=== PATIENT | male | born 1945 | race Caucasian/White ===

== ENCOUNTER 2019-04-14 15:29 | Inpatient (IN) | payer MEDICARE, OTHER ==
[2019-04-14 15:37] LABS: Glucose,Whole Blood 48 mg/dL (75-99)
[2019-04-14] MEDS ORDERED: DEXTROSE 50% SYRINGE 50 ML IVP STA ×2 (15:41→16:49)
--- NOTE | 2019-04-14 15:50 | ED ---
Recheck HPI - General Chief Complaint: Altered Mental Status Stated Complaint: Hypoglycemia Time Seen by Provider: 04/14/19 15:36 Source: patient Mode of arrival: EMS Limitations: no limitations - History of Present Illness Initial Comments: 74-year-old male with history of diabetes type II, hyperlipidemia hypertension, CKD and previous CABG aortic valve replacement history of hypoglycemia on glipizidepresenting today for chief complaint of altered mental status. who is at bedside providing part of history wiht patient himself who is alert and oriented x3 and does not appears acutely altered, states that patient is 6 AM was out of it she states around 1 AM prior to this time patient was feeling hot and sweaty. Patient has history of previous hypoglycemic episodes and has happened in past. She states that patient was out of it by 6AM and hard to arouse so she called EMS, and was found to have low blood glucose of 48. Given an AMP of glucose and food and patient normalized. She states they did not wish to come to ER given patient has no other complaints. Patient state the symptoms returned again this afternoon and patient was again found hypoglycemic and was brought to the ER. Again patient has no other complaints-he denies any weakness of the upper or lower extremities he denies any speech changes facial droop numbness tingling of the extremities. He admits to some generalized weakness during episodes of low blood glucose. Patient denies any headache nausea vomiting abdominal pain chest pain shortness of breath. states that she thinks his lower extremity peripheral edema which is chronic appear slightly increased from baseline. Patient otherwise has no complaints, and appears nontoxic on arrival. VS stable. POC glucose LOW. - Related Data Home Medications Medication Instructions Recorded Confirmed Acetaminophen [Tylenol 8 Hour] 650 mg PO Q8H PRN 04/14/19 04/14/19 Aspirin EC [Ecotrin Low Dose] 81 mg PO DAILY 04/14/19 04/14/19 Calcitriol 0.25 mcg PO MOWEFR 04/14/19 04/14/19 Carvedilol 25 mg PO BID 04/14/19 04/14/19 Cholecalciferol (Vitamin D3) 2,000 unit PO DAILY 04/14/19 04/14/19 [Vitamin D3] Furosemide [Lasix] 80 mg PO DAILY 04/14/19 04/14/19 Glimepiride [Amaryl] 1 mg PO DAILY 04/14/19 04/14/19 Isosorbide Mononitrate ER [Imdur] 30 mg PO DAILY 04/14/19 04/14/19 Rosuvastatin Calcium [Crestor] 10 mg PO HS 04/14/19 04/14/19 Sodium Bicarbonate Tab 650 mg PO DAILY 04/14/19 04/14/19 Sotalol [Betapace] 80 mg PO BID 04/14/19 04/14/19 Tamsulosin HCl [Flomax] 0.4 mg PO DAILY 04/14/19 04/14/19 Ubidecarenone [Co Q-10] 100 mg PO DAILY 04/14/19 04/14/19 Warfarin [Coumadin] 2.5 mg PO DAILY 04/14/19 04/14/19 amLODIPine [Norvasc] 5 mg PO DAILY 04/14/19 04/14/19 hydrALAZINE HCL 25 mg PO BID 04/14/19 04/14/19 Allergies Allergy/AdvReac Type Severity Reaction Status Date / Time fluvastatin AdvReac Unknown Unknown Verified 04/14/19 17:51 clopidogrel [From Plavix] AdvReac Unknown Verified 04/14/19 17:51 spironolactone AdvReac ELEVATED Verified 04/14/19 17:51 [From Aldactone] POTASSIUM LEVELS Review of Systems ROS Statement: Those systems with pertinent positive or pertinent negative responses have been documented in the HPI. ROS Other: All systems not noted in ROS Statement are negative. Past Medical History Past Medical History: Coronary Artery Disease (CAD), Diabetes Mellitus, Hyperlipidemia, Hypertension Additional Past Medical History / Comment(s): bypass in 2015, childhood polio Past Surgical History: Unable to Obtain, Cardiac Valve Replacement, Coronary Bypass/CABG Additional Past Surgical History / Comment(s): CKD- stage 3, Smoking Status: Former smoker Past Alcohol Use History: None Reported Past Drug Use History: None Reported General Exam - General Exam Comments Initial Comments: General: The patient is awake and alert, in no distress Eye: +3 mm pupils are equal, round and reactive to light, extra-ocular movements are intact. No nystagmus. There is normal conjunctiva bilaterally. No signs of icterus. Ears, nose, mouth and throat: There are moist mucous membranes and no oral lesions. Neck: The neck is supple, there is no tenderness or JVD. Cardiovascular: There is a regular rate and rhythm. Murmur on exam. No rub or gallop is appreciated. Respiratory: Lungs are clear to auscultation, respirations are non-labored, breath sounds are equal. No wheezes, stridor, rales, or rhonchi. Gastrointestinal: Soft, non-distended, non-tender abdomen without masses or organomegaly noted. There is no rebound or guarding present. Musculoskeletal: Normal ROM, no tenderness. Strength 5/5 of the UE and LE equal b/l. Sensation intact of the face, chest, abdomen, UE and LE equal b/l. Radial and DP pulses equal bilaterally 2+. No drift of UE or LE. Finger to nose smooth and coordinated. Neurological: A&O x 3. CN II-XII intact grossly, There are no obvious motor or sensory deficits. Coordination appears grossly intact. Speech is normal. Skin: Skin is warm and dry and no rashes or lesions are noted. +2 LE pitting edema. Scar of the right LE lateral aspect. Psychiatric: Cooperative, appropriate mood & affect, normal judgment. Limitations: no limitations Course Vital Signs 04/14/19 04/14/19 04/14/19 15:31 15:47 17:20 Pulse Rate 63 Respiratory 18 17 18 Rate Blood Pressure 110/76 O2 Sat by Pulse 96 Oximetry Medical Decision Making - Medical Decision Making 74-year-old male presenting for labile glucose. Patient having bouts of hypoglycemia that are recurrent. Patient has history of CHF and has noted increasing edema per . Patient has no complaints. No fevers. Troponin mildly elevated BNP at 19,000. EKG is paced. She denies any chest pain or shortness of breath. No neurological deficits. No acute CT findings. CXR small pleural effusions. Throughout ER visits difficulty regulating sugar, plans on D5-0.45% with q30min blood glucose checks. Patient family updated [facility] laboratory results. Agreeable to admission with cardiology consultation. Patient given IV lasix in ER. Dr. Wren is agreeable with care plan and admission. [place] RIVAS recommended endocrine consult in addition to cardiology and is accepting of admission and current care plan. - Lab Data Result diagrams: 04/14/19 16:00 04/14/19 16:00 Lab Results 04/14/19 04/14/19 04/14/19 Range/Units 15:35 16:00 16:00 WBC 11.2 H (3.8-10.6) k/uL RBC 3.73 L (4.30-5.90) m/uL Hgb 10.2 L (13.0-17.5) gm/dL Hct 33.4 L (39.0-53.0) % MCV 89.7 (80.0-100.0) fL MCH 27.5 (25.0-35.0) pg MCHC 30.6 L (31.0-37.0) g/dL RDW 14.5 (11.5-15.5) % Plt Count 157 (150-450) k/uL Neutrophils % 87 % Lymphocytes % 5 % Monocytes % 7 % Eosinophils % 0 % Basophils % 0 % Neutrophils # 9.7 H (1.3-7.7) k/uL Lymphocytes # 0.6 L (1.0-4.8) k/uL Monocytes # 0.7 (0-1.0) k/uL Eosinophils # 0.0 (0-0.7) k/uL Basophils # 0.0 (0-0.2) k/uL PT (9.0-12.0) sec INR (<1.2) APTT (22.0-30.0) sec Sodium 139 (137-145) mmol/L Potassium 3.4 L (3.5-5.1) mmol/L Chloride 99 (98-107) mmol/L Carbon Dioxide 28 (22-30) mmol/L Anion Gap 12 mmol/L BUN 64 H (9-20) mg/dL Creatinine 1.75 H (0.66-1.25) mg/dL Est GFR (CKD-EPI)AfAm 44 (>60 ml/min/1.73 sqM) Est GFR (CKD-EPI)NonAf 38 (>60 ml/min/1.73 sqM) Glucose 33 L* (74-99) mg/dL POC Glucose (mg/dL) 48 L (75-99) mg/dL POC Glu [employer] ID Eli Rossi Calcium 8.5 (8.4-10.2) mg/dL Total Bilirubin 1.1 (0.2-1.3) mg/dL AST 33 (17-59) U/L ALT 15 (4-49) U/L Alkaline Phosphatase 92 (38-126) U/L Troponin I (0.000-0.034) ng/mL NT-Pro-B Natriuret Pep pg/mL Total Protein 7.0 (6.3-8.2) g/dL Albumin 3.4 L (3.5-5.0) g/dL 04/14/19 04/14/19 04/14/19 Range/Units 16:00 16:00 16:00 WBC (3.8-10.6) k/uL RBC (4.30-5.90) m/uL Hgb (13.0-17.5) gm/dL Hct (39.0-53.0) % MCV (80.0-100.0) fL MCH (25.0-35.0) pg MCHC (31.0-37.0) g/dL RDW (11.5-15.5) % Plt Count (150-450) k/uL Neutrophils % % Lymphocytes % % Monocytes % % Eosinophils % % Basophils % % Neutrophils # (1.3-7.7) k/uL Lymphocytes # (1.0-4.8) k/uL Monocytes # (0-1.0) k/uL Eosinophils # (0-0.7) k/uL Basophils # (0-0.2) k/uL PT 56.3 H (9.0-12.0) sec INR 5.8 H* (<1.2) APTT 43.4 H (22.0-30.0) sec Sodium (137-145) mmol/L Potassium (3.5-5.1) mmol/L Chloride (98-107) mmol/L Carbon Dioxide (22-30) mmol/L Anion Gap mmol/L BUN (9-20) mg/dL Creatinine (0.66-1.25) mg/dL Est GFR (CKD-EPI)AfAm (>60 ml/min/1.73 sqM) Est GFR (CKD-EPI)NonAf (>60 ml/min/1.73 sqM) Glucose (74-99) mg/dL POC Glucose (mg/dL) (75-99) mg/dL POC Glu [employer] ID Calcium (8.4-10.2) mg/dL Total Bilirubin (0.2-1.3) mg/dL AST (17-59) U/L ALT (4-49) U/L Alkaline Phosphatase (38-126) U/L Troponin I 0.073 H* (0.000-0.034) ng/mL NT-Pro-B Natriuret Pep 27231 pg/mL Total Protein (6.3-8.2) g/dL Albumin (3.5-5.0) g/dL 04/14/19 04/14/19 04/14/19 Range/Units 16:02 16:23 16:46 WBC (3.8-10.6) k/uL RBC (4.30-5.90) m/uL Hgb (13.0-17.5) gm/dL Hct (39.0-53.0) % MCV (80.0-100.0) fL MCH (25.0-35.0) pg MCHC (31.0-37.0) g/dL RDW (11.5-15.5) % Plt Count (150-450) k/uL Neutrophils % % Lymphocytes % % Monocytes % % Eosinophils % % Basophils % % Neutrophils # (1.3-7.7) k/uL Lymphocytes # (1.0-4.8) k/uL Monocytes # (0-1.0) k/uL Eosinophils # (0-0.7) k/uL Basophils # (0-0.2) k/uL PT (9.0-12.0) sec INR (<1.2) APTT (22.0-30.0) sec Sodium (137-145) mmol/L Potassium (3.5-5.1) mmol/L Chloride (98-107) mmol/L Carbon Dioxide (22-30) mmol/L Anion Gap mmol/L BUN (9-20) mg/dL Creatinine (0.66-1.25) mg/dL Est GFR (CKD-EPI)AfAm (>60 ml/min/1.73 sqM) Est GFR (CKD-EPI)NonAf (>60 ml/min/1.73 sqM) Glucose (74-99) mg/dL POC Glucose (mg/dL) 134 H 101 H 66 L (75-99) mg/dL POC Glu [employer] Tegan Faria Brittany Gorecki, Joanna Calcium (8.4-10.2) mg/dL Total Bilirubin (0.2-1.3) mg/dL AST (17-59) U/L ALT (4-49) U/L Alkaline Phosphatase (38-126) U/L Troponin I (0.000-0.034) ng/mL NT-Pro-B Natriuret Pep pg/mL Total Protein (6.3-8.2) g/dL Albumin (3.5-5.0) g/dL 04/14/19 04/14/19 Range/Units 17:00 17:49 WBC (3.8-10.6) k/uL RBC (4.30-5.90) m/uL Hgb (13.0-17.5) gm/dL Hct (39.0-53.0) % MCV (80.0-100.0) fL MCH (25.0-35.0) pg MCHC (31.0-37.0) g/dL RDW (11.5-15.5) % Plt Count (150-450) k/uL Neutrophils % % Lymphocytes % % Monocytes % % Eosinophils % % Basophils % % Neutrophils # (1.3-7.7) k/uL Lymphocytes # (1.0-4.8) k/uL Monocytes # (0-1.0) k/uL Eosinophils # (0-0.7) k/uL Basophils # (0-0.2) k/uL PT (9.0-12.0) sec INR (<1.2) APTT (22.0-30.0) sec Sodium (137-145) mmol/L Potassium (3.5-5.1) mmol/L Chloride (98-107) mmol/L Carbon Dioxide (22-30) mmol/L Anion Gap mmol/L BUN (9-20) mg/dL Creatinine (0.66-1.25) mg/dL Est GFR (CKD-EPI)AfAm (>60 ml/min/1.73 sqM) Est GFR (CKD-EPI)NonAf (>60 ml/min/1.73 sqM) Glucose (74-99) mg/dL POC Glucose (mg/dL) 195 H 70 L (75-99) mg/dL POC Glu [employer] Tegan Faria, Mari Calcium (8.4-10.2) mg/dL Total Bilirubin (0.2-1.3) mg/dL AST (17-59) U/L ALT (4-49) U/L Alkaline Phosphatase (38-126) U/L Troponin I (0.000-0.034) ng/mL NT-Pro-B Natriuret Pep pg/mL Total Protein (6.3-8.2) g/dL Albumin (3.5-5.0) g/dL - EKG Data EKG Comments: ventricular rate 62 bpm, QRS duration 194msQT/QTc 642/651 ms. This is ventricular paced rhythm. Disposition Clinical Impression: Hypoglycemia, Elevated troponin, CHF exacerbation, Coagulopathy, Supratherapeutic INR Disposition: ADMITTED IP TO THIS [facility] Condition: Serious Is patient prescribed a controlled substance at d/c from ED?: No Referrals: Nohemy Donis DO [Primary Care Provider] - 1-2 days Time of Disposition: 18:18 Decision to Admit Reason: Admit from EC Decision Date: 04/14/19 Decision Time: 18:19
[2019-04-14 16:05] LABS: Glucose,Whole Blood 134 mg/dL (75-99)
[2019-04-14 16:15] LABS: Basophils % (A) 0 %; Eosinophils % (A) 0 %; HCT 33.4 % (39.0-53.0); HGB 10.2 gm/dL (13.0-17.5); Lymphocytes # (A) 0.6 k/uL (1.0-4.8); Lymphocytes % (A) 5 %; MCH 27.5 pg (25.0-35.0); MCHC 30.6 g/dL (31.0-37.0); MCV 89.7 fL (80.0-100.0); Mean Platelet Volume 8.8; Monocytes # (A) 0.7 k/uL (0-1.0); Monocytes % (A) 7 %; Neutrophils # (A) 9.7 k/uL (1.3-7.7); Neutrophils % (A) 87 %; Platelet Count 157 k/uL (150-450); RBC 3.73 m/uL (4.30-5.90); RDW 14.5 % (11.5-15.5); WBC 11.2 k/uL (3.8-10.6)
[2019-04-14 16:25] LABS: Glucose,Whole Blood 101 mg/dL (75-99)
--- NOTE | 2019-04-14 16:28 | XR ---
EXAMINATION TYPE: XR chest 2V DATE OF EXAM: 04/14/2019 COMPARISON: None INDICATION: Low blood sugar, altered mental status TECHNIQUE: Frontal and lateral views of the chest are obtained. FINDINGS: The heart size is normal. The pulmonary vasculature is normal. Small posterior pleural effusions are present.. Electronic device overlies the right chest. Sternoto my wires are in the midline. IMPRESSION: 1. Small bilateral pleural effusions
--- NOTE | 2019-04-14 16:28 | CT ---
EXAMINATION TYPE: CT brain wo con DATE OF EXAM: 04/14/2019 COMPARISON: None INDICATION: altered mental status DLP: 1063.4 mGycm, Automated exposure control for dose reduction was used. CONTRAST: None CT of the brain is performed utilizing 3 mm thick sections through the posterior fossa and 3 mm thick sections through the remaining calvarium. Study is performed within 24 hours of arrival to the hosp ital. No abnormal hyperdensity is present to suggest an acute intracranial hemorrhage. No mass lesion is evident. No acute infarcts are evident. There is low density in the periventricular regions. There is hypodens ity extending centrum semiovale. This appears confluent. Ventricles and sulci are prominent for the patient age. Paranasal sinuses and mastoid air cells within the [id number] are clear. IMPRESSIONS: 1. Patchy to confluent periventricular white matter hypodensity, likely on the basis of chronic whi te matter ischemic changes.
[2019-04-14 16:31] LABS: Albumin 3.4 g/dL (3.5-5.0); Calcium 8.5 mg/dL (8.4-10.2); Potassium 3.4 mmol/L (3.5-5.1); Total Bilirubin 1.1 mg/dL (0.2-1.3)
[2019-04-14 16:33] LABS: Partial Thromboplastin Time 43.4 sec (22.0-30.0); Prothrombin Time 56.3 sec (9.0-12.0)
[2019-04-14 16:45] LABS: INR 5.8 (<1.2)
[2019-04-14 16:48] LABS: Glucose,Whole Blood 66 mg/dL (75-99)
[2019-04-14 17:09] LABS: Glucose,Whole Blood 195 mg/dL (75-99)
[2019-04-14] MEDS ORDERED: ACETAMINOPHEN TAB 325 MG TAB PO STA (17:10)
[2019-04-14] MEDS ORDERED: FUROSEMIDE 10 MG/ML 4 ML VIAL IV STA (17:31)
[2019-04-14] MEDS ORDERED: NITROGLYCERIN SL TABS 0.4 MG TAB SUBLINGUAL PRN (17:52)
[2019-04-14 18:00] LABS: Glucose,Whole Blood 70 mg/dL (75-99)
[2019-04-14] MEDS ORDERED: DEXTROSE 5%-0.45% NACL 1,000 ML IV ONE (18:17)
[2019-04-14 19:00] LABS: Appearance,Urine Clear (Clear); Bilirubin,Urine Negative (Negative); Blood,Urine Negative (Negative); Color,Urine Yellow; Glucose,Urine (UA) Negative (Negative); Ketones,Urine Negative (Negative); Leukocyte Esterase,Urine Negative (Negative); Nitrite,Urine Negative (Negative); Protein,Urine Negative (Negative); Specific Gravity,Urine 1.016 (1.001-1.035)
[2019-04-14 19:04] LABS: Glucose,Whole Blood 52 mg/dL (75-99)
[2019-04-14 19:16] LABS: Amphetamine Screen,Urine Not Detected (NotDetected); Barbiturate Screen,Urine Not Detected (NotDetected); Benzodiazepines Screen,Urine Not Detected (NotDetected); Cocaine Screen,Urine Not Detected (NotDetected); Methadone Screen, Urine Not Detected (NotDetected); Opiate Screen,Urine Not Detected (NotDetected); Oxycodone Screen, Urine Not Detected (NotDetected); Phencyclidine Screen,Urine Not Detected (NotDetected); Tricyclic Antidepressant,Urine Not Detected (NotDetected); Urn Cannabinoid Scrn Not Detected (NotDetected)
[2019-04-14 19:42] LABS: Glucose,Whole Blood 57 mg/dL (75-99)
[2019-04-14 19:53] LABS: Glucose,Whole Blood 72 mg/dL (75-99)
[2019-04-14 20:22] LABS: Glucose,Whole Blood 54 mg/dL (75-99)
[2019-04-14 20:38] LABS: Glucose,Whole Blood 52 mg/dL (75-99)
[2019-04-14 20:57] LABS: Glucose,Whole Blood 56 mg/dL (75-99)
[2019-04-14] MEDS ORDERED: DEXTROSE 10 % IN WATER 250 ML IV ONE (21:01)
[2019-04-14] MEDS: ACETAMINOPHEN TAB 325 MG TAB PO PRN (21:11)
[2019-04-14] MEDS: SODIUM BICARBONATE TAB 650 MG TAB PO SCH (21:11)
[2019-04-14] MEDS ORDERED: POTASSIUM CHLORIDE ER 20 MEQ TAB.ER PO STA (21:31)
[2019-04-14 21:36] LABS: Glucose,Whole Blood 100 mg/dL (75-99)
[2019-04-14 22:05] LABS: Glucose,Whole Blood 91 mg/dL (75-99)
[2019-04-14 22:32] LABS: Glucose,Whole Blood 86 mg/dL (75-99)
[2019-04-14 22:57] LABS: Glucose,Whole Blood 65 mg/dL (75-99)
[2019-04-14 23:19] LABS: Glucose,Whole Blood 75 mg/dL (75-99)
[2019-04-14 23:48] LABS: Glucose,Whole Blood 70 mg/dL (75-99)
[2019-04-15 00:05] LABS: Glucose,Whole Blood 61 mg/dL (75-99)
[2019-04-15] MEDS ORDERED: DEXTROSE 10 % IN WATER 250 ML IV STA ×5 (00:26→06:53)
[2019-04-15 00:31] LABS: Glucose,Whole Blood 48 mg/dL (75-99)
[2019-04-15 00:50] LABS: Glucose,Whole Blood 145 mg/dL (75-99)
[2019-04-15] MEDS ORDERED: DEXTROSE 10% IN WATER 1,000 ML with SODIUM CHLORIDE 2.5MEQ/ML VIAL 77 MEQ IV SCH (01:00)
[2019-04-15] MEDS ORDERED: DEXTROSE 10% IN WATER 1,000 ML with SODIUM CHLORIDE 2.5MEQ/ML VIAL 77 MEQ IV ONE (01:00)
[2019-04-15 01:24] LABS: Glucose,Whole Blood 76 mg/dL (75-99)
[2019-04-15 01:53] LABS: Glucose,Whole Blood 57 mg/dL (75-99)
[2019-04-15 02:07] LABS: Glucose,Whole Blood 55 mg/dL (75-99)
[2019-04-15 02:19] LABS: Glucose,Whole Blood 57 mg/dL (75-99)
[2019-04-15 02:37] LABS: Glucose,Whole Blood 54 mg/dL (75-99)
[2019-04-15 02:59] LABS: Glucose,Whole Blood 51 mg/dL (75-99)
[2019-04-15 03:31] LABS: Glucose,Whole Blood 99 mg/dL (75-99)
[2019-04-15 03:37] LABS: Calcium 7.8 mg/dL (8.4-10.2); Potassium 3.7 mmol/L (3.5-5.1)
[2019-04-15 04:02] LABS: Glucose,Whole Blood 59 mg/dL (75-99)
[2019-04-15 04:30] LABS: Glucose,Whole Blood 43 mg/dL (75-99)
[2019-04-15 04:50] LABS: Glucose,Whole Blood 40 mg/dL (75-99)
[2019-04-15] MEDS ORDERED: FUROSEMIDE 10 MG/ML 4 ML VIAL IV SCH (05:00)
[2019-04-15 05:03] LABS: Glucose,Whole Blood 115 mg/dL (75-99)
[2019-04-15 05:22] LABS: Glucose,Whole Blood 78 mg/dL (75-99)
[2019-04-15 05:51] LABS: Glucose,Whole Blood 45 mg/dL (75-99)
[2019-04-15 05:59] LABS: African American GFR (CKD) 39 (>60 ml/min/1.73 sqM); Anion Gap 10 mmol/L; Blood Urea Nitrogen 66 mg/dL (9-20); Calcium 8.1 mg/dL (8.4-10.2); Carbon Dioxide 29 mmol/L (22-30); Chloride 93 mmol/L (98-107); Cholesterol 80 mg/dL (<200); HDL Cholesterol 25 mg/dL (40-60); LDL Cholesterol,Calculated 41 mg/dL (0-99); Non-African American GFR(CKD) 34 (>60 ml/min/1.73 sqM); Potassium 4.1 mmol/L (3.5-5.1); Sodium 132 mmol/L (137-145); Triglycerides 71 mg/dL (<150)
[2019-04-15 06:10] LABS: Glucose,Whole Blood 40 mg/dL (75-99)
[2019-04-15 06:20] LABS: Glucose 40 mg/dL (74-99)
[2019-04-15 06:32] LABS: Glucose,Whole Blood 127 mg/dL (75-99)
[2019-04-15 07:03] LABS: Glucose,Whole Blood 110 mg/dL (75-99)
[2019-04-15 07:39] LABS: Glucose,Whole Blood 66 mg/dL (75-99)
[2019-04-15] MEDS ORDERED: CARVEDILOL 3.125 MG TAB PO SCH (08:00)
[2019-04-15 08:08] LABS: Glucose,Whole Blood 61 mg/dL (75-99)
[2019-04-15 08:29] LABS: Glucose,Whole Blood 62 mg/dL (75-99)
[2019-04-15] MEDS ORDERED: ASPIRIN 81 MG PO SCH (09:00)
[2019-04-15 09:29] LABS: Glucose,Whole Blood 52 mg/dL (75-99)
[2019-04-15] MEDS: SODIUM BICARBONATE TAB 650 MG TAB PO SCH (09:52)
[2019-04-15 10:01] LABS: Glucose,Whole Blood 53 mg/dL (75-99)
[2019-04-15 10:22] VITALS: PULSE 60
[2019-04-15 10:22] LABS: Glucose,Whole Blood 60 mg/dL (75-99)
[2019-04-15] MEDS: ACETAMINOPHEN TAB 325 MG TAB PO PRN (10:54)
[2019-04-15 11:02] LABS: Glucose,Whole Blood 50 mg/dL (75-99)
[2019-04-15 11:03] LABS: Basophils % (A) 0 %; Eosinophils # (A) 0.1 k/uL (0-0.7); Eosinophils % (A) 1 %; HCT 32.7 % (39.0-53.0); HGB 10.1 gm/dL (13.0-17.5); Hypochromasia Slight; Lymphocytes # (A) 0.6 k/uL (1.0-4.8); Lymphocytes % (A) 7 %; MCH 28.5 pg (25.0-35.0); MCHC 30.8 g/dL (31.0-37.0); MCV 92.8 fL (80.0-100.0); Mean Platelet Volume 10.5; Monocytes # (A) 0.6 k/uL (0-1.0); Monocytes % (A) 7 %; Neutrophils # (A) 6.7 k/uL (1.3-7.7); Neutrophils % (A) 84 %; Platelet Count 144 k/uL (150-450); RBC 3.53 m/uL (4.30-5.90); RDW 14.4 % (11.5-15.5)
[2019-04-15 11:12] LABS: Glucose,Whole Blood 72 mg/dL (75-99)
[2019-04-15 11:14] LABS: Albumin 3.3 g/dL (3.5-5.0); Bilirubin, Delta 0.5 mg/dL (0.0-0.2); Bilirubin,Unconjugated 0.4 mg/dL (0.0-1.1); Potassium 3.9 mmol/L (3.5-5.1); Total Bilirubin 0.9 mg/dL (0.2-1.3)
[2019-04-15 11:21] LABS: Partial Thromboplastin Time 44.9 sec (22.0-30.0); Prothrombin Time 65.9 sec (9.0-12.0)
[2019-04-15 11:27] LABS: INR 6.8 (<1.2)
[2019-04-15 11:38] LABS: Glucose,Whole Blood 114 mg/dL (75-99)
[2019-04-15] MEDS ORDERED: PHYTONADIONE ORAL 5 MG/5 ML ORAL.SYRG PO STA (11:53)
[2019-04-15] MEDS ORDERED: FAMOTIDINE 20 MG/2 ML VIAL IV SCH ×2 (12:00→21:00)
--- NOTE | 2019-04-15 12:02 | CONS ---
CONSULTATION This patient's electronic medical records reviewed. The patient has a known history of hypertension, hyperlipidemia, diabetes, patient has a previous coronary artery bypass surgery and aortic valve replacement. The patient's only medications for diabetes is glipizide. The patient presented to the emergency room with recurrent episodes of hypoglycemia. The patient has a stable CAD. He denies angina with any routine activities. He is moderately active physically. Denies any orthopnea or PND. He has a mild swelling in the legs. The patient has a surgery at [facility] and he is being followed by therapeutic recreation specialist at [facility]. At present, patient is comfortable without any respiratory distress. MEDICATIONS: Home medications include aspirin, Coreg, Lasix 80 mg daily, Crestor 10 mg daily, Flomax, the patient is on Coumadin and Norvasc and hydralazine. REVIEW OF THE SYSTEM: Otherwise unremarkable. PAST MEDICAL HISTORY: Includes coronary artery bypass surgery and cardiac valve replacement. PHYSICAL EXAMINATION: At present reveals a 74-year-old gentleman who is obesely built, does not appear to be in any acute distress. The patient's blood pressure is 115/73 mmHg, heart rate is 60 per minute. HEENT examination is negative. Neck is supple. There is no increase in jugular venous pressure. Both the carotid pulses are felt. There is no bruit. Chest is symmetrical. Heart: The PMI is not felt. First and second heart sounds are normal. There is no evidence of any significant murmur lungs are clinically clear to auscultation and percussion. Abdomen is negative. Extremities: Peripheral pulses 1+. There is a trace leg edema. The patient's EKG shows a paced rhythm. The patient's laboratory tests shows INR is 5.8. The patient's creatinine is 1.8. Two sets of troponins are 0.071 and 0.077. BNP level is 19,000. We do not have any old BNP available. FINAL IMPRESSION: This patient is admitted primary with a recurrent episodes of hypoglycemia. The patient has a stable CAD with a history of coronary artery bypass surgery and aortic valve replacement. Chest x-ray shows questionable minimal heart failure. However patient is not in any respiratory distress. Clinically, there is no evidence of any overt heart failure. The patient could have a chronically elevated BNP level in view of his underlying ischemic cardiomyopathy. Echo and Doppler study will be done. I will recommend to resume the patient's cardiac medications which includes the Coreg and sotalol. The patient's Coumadin will be put on hold. The patient is advised to follow up with therapeutic recreation specialist once the patient is discharged. LITO / MIKHAIL: [id number] /
[2019-04-15 12:31] LABS: Glucose,Whole Blood 77 mg/dL (75-99)
[2019-04-15 13:14] LABS: Glucose,Whole Blood 71 mg/dL (75-99)
[2019-04-15 14:09] VITALS: BMI 33.4
[2019-04-15 14:23] LABS: Glucose,Whole Blood 65 mg/dL (75-99)
[2019-04-15 14:37] LABS: Glucose,Whole Blood 74 mg/dL (75-99)
[2019-04-15 15:14] LABS: Glucose,Whole Blood 102 mg/dL (75-99)
[2019-04-15 15:25] VITALS: BP 123/78; RESP 16; TEMP 98.1
[2019-04-15] MEDS ORDERED: ACETAMINOPHEN 650 MG PO PRN (15:42)
--- NOTE | 2019-04-15 15:44 | P.HPIM ---
History of Present Illness Please consider this combined H&P and discharge summary this is a pleasant 74 years old male with past medical history of coronary a rtery diseasestatus post bypass and CABG, diabetes mellitus, hyperlipidemia, hypertension, chronic kidney disease stage III. Presents because of altered mental status. As per at bedside patient has 2 episodes of loss of consciousness and it was checked by EMS personnel to was low and 40-50, first time was corrected so refused to come to emergency room and after the second time he passed out sugar was persistently low so EMS brought him to the emergency room. And since then patient was persistently hyperglycemic despite several injections of glucose and D10 infusion. Also patient was noted to have tachypneic CHF was suspicious for heart failure, patient was placed on Lasix 40 mg IV twice a day. His saturation was 93% on room air. His vitals are stable. Also patient received 1 dose of vitamin K 2.5 mg since admission patient has been hypoglycemic running in the 50s and 70s, patel pite therapy with the D10w infusion, and glucose injections.breasts of her electrolytes look stable including sodium 133, potassium 3.9, creatinine 1.9. His basal creatinine is 1.7-1.8. AST is mildly elevated at 68, rest of liver enzymes are unremarkable. INR is 6.8, compared to yesterday 5.8. urine analysis is negativefor infection. EKG showing paced rhythm at 62. Chest x-ray showing small bilateral pleural effusion per radiologist. CT of the brain showing no acute infarct, however he has possible chronic white matter ischemic changes. Review of Systems CONSTITUTIONAL: No fever, no malaise, no fatigue. HEENT: No recent visual problems or hearing problems. Denied any sore throat. CARDIOVASCULAR: no palpitations, no syncope. PULMONARY: no hemoptysis. GASTROINTESTINAL: No diarrhea, no nausea, no vomiting, no abdominal pain. Normoactive bowel sounds. NEUROLOGICAL: No headaches, no weakness, no numbness. HEMATOLOGICAL: Denies any bleeding or petechiae. GENITOURINARY: Denies any burning micturition, frequency, or urgency. MUSCULOSKELETAL/RHEUMATOLOGICAL: Denies any joint pain, swelling, or any muscle pain. ENDOCRINE: Denies any polyuria or polydipsia. Past Medical History Past Medical History: Coronary Artery Disease (CAD), Diabetes Mellitus, Hyperlipidemia, Hypertension Additional Past Medical History / Comment(s): bypass in 2014, childhood polio History of Any Multi-Drug Resistant Organisms: None Reported Past Surgical History: Unable to Obtain, Cardiac Valve Replacement, Coronary Bypass/CABG, Pacemaker Additional Past Surgical History / Comment(s): CKD- stage 3, Past Anesthesia/Blood Transfusion Reactions: No Reported Reaction Type of Cardiac Device: AICD Device Placement Date:: 07/14/17 Past Psychological History: No Psychological Hx Reported Smoking Status: Former smoker Past Alcohol Use History: None Reported Past Drug Use History: None Reported Medications and Allergies Home Medications Medication Instructions Recorded Confirmed Type Acetaminophen [Tylenol 8 Hour] 650 mg PO Q8H PRN 04/14/19 04/14/19 History Aspirin EC [Ecotrin Low Dose] 81 mg PO DAILY 04/14/19 04/14/19 History Calcitriol 0.25 mcg PO MOWEFR 04/14/19 04/14/19 History Carvedilol 25 mg PO BID 04/14/19 04/14/19 History Cholecalciferol (Vitamin D3) 2,000 unit PO DAILY 04/14/19 04/14/19 History [Vitamin D3] Furosemide [Lasix] 80 mg PO DAILY 04/14/19 04/14/19 History Glimepiride [Amaryl] 1 mg PO DAILY 04/14/19 04/14/19 History Isosorbide Mononitrate ER [Imdur] 30 mg PO DAILY 04/14/19 04/14/19 History Rosuvastatin Calcium [Crestor] 10 mg PO HS 04/14/19 04/14/19 History Sodium Bicarbonate Tab 650 mg PO DAILY 04/14/19 04/14/19 History Sotalol [Betapace] 80 mg PO BID 04/14/19 04/14/19 History Tamsulosin HCl [Flomax] 0.4 mg PO DAILY 04/14/19 04/14/19 History Ubidecarenone [Co Q-10] 100 mg PO DAILY 04/14/19 04/14/19 History Warfarin [Coumadin] 2.5 mg PO DAILY 04/14/19 04/14/19 History amLODIPine [Norvasc] 5 mg PO DAILY 04/14/19 04/14/19 History hydrALAZINE HCL 25 mg PO BID 04/14/19 04/14/19 History Allergies Allergy/AdvReac Type Severity Reaction Status Date / Time fluvastatin AdvReac Unknown Unknown Verified 04/14/19 17:51 clopidogrel [From Plavix] AdvReac Unknown Verified 04/14/19 17:51 spironolactone AdvReac ELEVATED Verified 04/14/19 17:51 [From Aldactone] POTASSIUM LEVELS Physical Exam Vitals: Vital Signs Temp Pulse Pulse Resp BP BP Pulse Ox 04/15/19 08:00 97.6 F 60 20 115/73 93 L 04/15/19 04:00 98 F 61 18 101/61 95 04/15/19 00:00 97.6 F 65 18 101/72 95 04/14/19 20:00 98 F 64 18 106/66 95 04/14/19 19:30 100/55 04/14/19 18:46 97.8 F 61 18 04/14/19 17:20 18 04/14/19 15:47 17 04/14/19 15:31 63 18 110/76 96 Intake and Output 04/14/19 04/15/19 04/15/19 22:59 06:59 14:59 Intake Total 1080 1240 600 Output Total 150 Balance 1080 1090 600 Intake: Oral 1080 1240 600 Output: Urine 150 Straight 150 Other: # Voids 1 # Bowel Movements 1 Weight 99.79 kg 99.79 kg GENERAL: The patient is alert and oriented x3, not in any acute distress. Well d eveloped, well nourished. HEENT: Pupils are round and equally reacting to light. EOMI. No scleral icterus. No conjunctival pallor. Normocephalic, atraumatic. No pharyngeal erythema. No thyromegaly. CARDIOVASCULAR: S1 and S2 present. No murmurs, rubs, or gallops. -PULMONARY: Chest is clear to auscultation,bilateral basal crepitation. ABDOMEN: Soft, nontender, nondistended, normoactive bowel sounds. No palpable organomegaly. MUSCULOSKELETAL: No joint swelling or deformity. EXTREMITIES: No cyanosis, clubbing, or pedal edema. NEUROLOGICAL: Gross neurological examination did not reveal any focal deficits. SKIN: No rashes. No petechiae Results CBC & Chem 7: 04/15/19 05:29 04/15/19 05:29 Labs: Abnormal Lab Results - Last 24 Hours (Table) 04/14/19 04/14/19 04/14/19 Range/Units 15:35 16:00 16:00 WBC 11.2 H (3.8-10.6) k/uL RBC 3.73 L (4.30-5.90) m/uL Hgb 10.2 L (13.0-17.5) gm/dL Hct 33.4 L (39.0-53.0) % MCHC 30.6 L (31.0-37.0) g/dL Plt Count (150-450) k/uL Neutrophils # 9.7 H (1.3-7.7) k/uL Lymphocytes # 0.6 L (1.0-4.8) k/uL PT (9.0-12.0) sec INR (<1.2) APTT (22.0-30.0) sec Sodium (137-145) mmol/L Potassium 3.4 L (3.5-5.1) mmol/L Chloride (98-107) mmol/L BUN 64 H (9-20) mg/dL Creatinine 1.75 H (0.66-1.25) mg/dL Glucose 33 L* (74-99) mg/dL POC Glucose (mg/dL) 48 L (75-99) mg/dL Calcium (8.4-10.2) mg/dL Delta Bilirubin (0.0-0.2) mg/dL AST (17-59) U/L Troponin I (0.000-0.034) ng/mL Albumin 3.4 L (3.5-5.0) g/dL HDL Cholesterol (40-60) mg/dL 04/14/19 04/14/19 04/14/19 Range/Units 16:00 16:00 16:02 WBC (3.8-10.6) k/uL RBC (4.30-5.90) m/uL Hgb (13.0-17.5) gm/dL Hct (39.0-53.0) % MCHC (31.0-37.0) g/dL Plt Count (150-450) k/uL Neutrophils # (1.3-7.7) k/uL Lymphocytes # (1.0-4.8) k/uL PT 56.3 H (9.0-12.0) sec INR 5.8 H* (<1.2) APTT 43.4 H (22.0-30.0) sec Sodium (137-145) mmol/L Potassium (3.5-5.1) mmol/L Chloride (98-107) mmol/L BUN (9-20) mg/dL Creatinine (0.66-1.25) mg/dL Glucose (74-99) mg/dL POC Glucose (mg/dL) 134 H (75-99) mg/dL Calcium (8.4-10.2) mg/dL Delta Bilirubin (0.0-0.2) mg/dL AST (17-59) U/L Troponin I 0.073 H* (0.000-0.034) ng/mL Albumin (3.5-5.0) g/dL HDL Cholesterol (40-60) mg/dL 04/14/19 04/14/19 04/14/19 Range/Units 16:23 16:46 17:00 WBC (3.8-10.6) k/uL RBC (4.30-5.90) m/uL Hgb (13.0-17.5) gm/dL Hct (39.0-53.0) % MCHC (31.0-37.0) g/dL Plt Count (150-450) k/uL Neutrophils # (1.3-7.7) k/uL Lymphocytes # (1.0-4.8) k/uL PT (9.0-12.0) sec INR (<1.2) APTT (22.0-30.0) sec Sodium (137-145) mmol/L Potassium (3.5-5.1) mmol/L Chloride (98-107) mmol/L BUN (9-20) mg/dL Creatinine (0.66-1.25) mg/dL Glucose (74-99) mg/dL POC Glucose (mg/dL) 101 H 66 L 195 H (75-99) mg/dL Calcium (8.4-10.2) mg/dL Delta Bilirubin (0.0-0.2) mg/dL AST (17-59) U/L Troponin I (0.000-0.034) ng/mL Albumin (3.5-5.0) g/dL HDL Cholesterol (40-60) mg/dL 04/14/19 04/14/19 04/14/19 Range/Units 17:49 19:02 19:32 WBC (3.8-10.6) k/uL RBC (4.30-5.90) m/uL Hgb (13.0-17.5) gm/dL Hct (39.0-53.0) % MCHC (31.0-37.0) g/dL Plt Count (150-450) k/uL Neutrophils # (1.3-7.7) k/uL Lymphocytes # (1.0-4.8) k/uL PT (9.0-12.0) sec INR (<1.2) APTT (22.0-30.0) sec Sodium (137-145) mmol/L Potassium (3.5-5.1) mmol/L Chloride (98-107) mmol/L BUN (9-20) mg/dL Creatinine (0.66-1.25) mg/dL Glucose (74-99) mg/dL POC Glucose (mg/dL) 70 L 52 L 57 L (75-99) mg/dL Calcium (8.4-10.2) mg/dL Delta Bilirubin (0.0-0.2) mg/dL AST (17-59) U/L Troponin I (0.000-0.034) ng/mL Albumin (3.5-5.0) g/dL HDL Cholesterol (40-60) mg/dL 04/14/19 04/14/19 04/14/19 Range/Units 19:52 20:21 20:36 WBC (3.8-10.6) k/uL RBC (4.30-5.90) m/uL Hgb (13.0-17.5) gm/dL Hct (39.0-53.0) % MCHC (31.0-37.0) g/dL Plt Count (150-450) k/uL Neutrophils # (1.3-7.7) k/uL Lymphocytes # (1.0-4.8) k/uL PT (9.0-12.0) sec INR (<1.2) APTT (22.0-30.0) sec Sodium (137-145) mmol/L Potassium (3.5-5.1) mmol/L Chloride (98-107) mmol/L BUN (9-20) mg/dL Creatinine (0.66-1.25) mg/dL Glucose (74-99) mg/dL POC Glucose (mg/dL) 72 L 54 L 52 L (75-99) mg/dL Calcium (8.4-10.2) mg/dL Delta Bilirubin (0.0-0.2) mg/dL AST (17-59) U/L Troponin I (0.000-0.034) ng/mL Albumin (3.5-5.0) g/dL HDL Cholesterol (40-60) mg/dL 04/14/19 04/14/19 04/14/19 Range/Units 20:56 21:35 22:11 WBC (3.8-10.6) k/uL RBC (4.30-5.90) m/uL Hgb (13.0-17.5) gm/dL Hct (39.0-53.0) % MCHC (31.0-37.0) g/dL Plt Count (150-450) k/uL Neutrophils # (1.3-7.7) k/uL Lymphocytes # (1.0-4.8) k/uL PT (9.0-12.0) sec INR (<1.2) APTT (22.0-30.0) sec Sodium (137-145) mmol/L Potassium (3.5-5.1) mmol/L Chloride (98-107) mmol/L BUN (9-20) mg/dL Creatinine (0.66-1.25) mg/dL Glucose (74-99) mg/dL POC Glucose (mg/dL) 56 L 100 H (75-99) mg/dL Calcium (8.4-10.2) mg/dL Delta Bilirubin (0.0-0.2) mg/dL AST (17-59) U/L Troponin I 0.071 H* (0.000-0.034) ng/mL Albumin (3.5-5.0) g/dL HDL Cholesterol (40-60) mg/dL 04/14/19 04/14/19 04/15/19 Range/Units 22:56 23:47 00:04 WBC (3.8-10.6) k/uL RBC (4.30-5.90) m/uL Hgb (13.0-17.5) gm/dL Hct (39.0-53.0) % MCHC (31.0-37.0) g/dL Plt Count (150-450) k/uL Neutrophils # (1.3-7.7) k/uL Lymphocytes # (1.0-4.8) k/uL PT (9.0-12.0) sec INR (<1.2) APTT (22.0-30.0) sec Sodium (137-145) mmol/L Potassium (3.5-5.1) mmol/L Chloride (98-107) mmol/L BUN (9-20) mg/dL Creatinine (0.66-1.25) mg/dL Glucose (74-99) mg/dL POC Glucose (mg/dL) 65 L 70 L 61 L (75-99) mg/dL Calcium (8.4-10.2) mg/dL Delta Bilirubin (0.0-0.2) mg/dL AST (17-59) U/L Troponin I (0.000-0.034) ng/mL Albumin (3.5-5.0) g/dL HDL Cholesterol (40-60) mg/dL 04/15/19 04/15/19 04/15/19 Range/Units 00:23 00:48 01:51 WBC (3.8-10.6) k/uL RBC (4.30-5.90) m/uL Hgb (13.0-17.5) gm/dL Hct (39.0-53.0) % MCHC (31.0-37.0) g/dL Plt Count (150-450) k/uL Neutrophils # (1.3-7.7) k/uL Lymphocytes # (1.0-4.8) k/uL PT (9.0-12.0) sec INR (<1.2) APTT (22.0-30.0) sec Sodium (137-145) mmol/L Potassium (3.5-5.1) mmol/L Chloride (98-107) mmol/L BUN (9-20) mg/dL Creatinine (0.66-1.25) mg/dL Glucose (74-99) mg/dL POC Glucose (mg/dL) 48 L 145 H 57 L (75-99) mg/dL Calcium (8.4-10.2) mg/dL Delta Bilirubin (0.0-0.2) mg/dL AST (17-59) U/L Troponin I (0.000-0.034) ng/mL Albumin (3.5-5.0) g/dL HDL Cholesterol (40-60) mg/dL 04/15/19 04/15/19 04/15/19 Range/Units 02:06 02:18 02:35 WBC (3.8-10.6) k/uL RBC (4.30-5.90) m/uL Hgb (13.0-17.5) gm/dL Hct (39.0-53.0) % MCHC (31.0-37.0) g/dL Plt Count (150-450) k/uL Neutrophils # (1.3-7.7) k/uL Lymphocytes # (1.0-4.8) k/uL PT (9.0-12.0) sec INR (<1.2) APTT (22.0-30.0) sec Sodium (137-145) mmol/L Potassium (3.5-5.1) mmol/L Chloride (98-107) mmol/L BUN (9-20) mg/dL Creatinine (0.66-1.25) mg/dL Glucose (74-99) mg/dL POC Glucose (mg/dL) 55 L 57 L 54 L (75-99) mg/dL Calcium (8.4-10.2) mg/dL Delta Bilirubin (0.0-0.2) mg/dL AST (17-59) U/L Troponin I (0.000-0.034) ng/mL Albumin (3.5-5.0) g/dL HDL Cholesterol (40-60) mg/dL 04/15/19 04/15/19 04/15/19 Range/Units 02:57 03:12 03:12 WBC (3.8-10.6) k/uL RBC (4.30-5.90) m/uL Hgb (13.0-17.5) gm/dL Hct (39.0-53.0) % MCHC (31.0-37.0) g/dL Plt Count (150-450) k/uL Neutrophils # (1.3-7.7) k/uL Lymphocytes # (1.0-4.8) k/uL PT (9.0-12.0) sec INR (<1.2) APTT (22.0-30.0) sec Sodium 132 L (137-145) mmol/L Potassium (3.5-5.1) mmol/L Chloride 95 L (98-107) mmol/L BUN 65 H (9-20) mg/dL Creatinine 1.80 H (0.66-1.25) mg/dL Glucose 103 H (74-99) mg/dL POC Glucose (mg/dL) 51 L (75-99) mg/dL Calcium 7.8 L (8.4-10.2) mg/dL Delta Bilirubin (0.0-0.2) mg/dL AST (17-59) U/L Troponin I 0.077 H* (0.000-0.034) ng/mL Albumin (3.5-5.0) g/dL HDL Cholesterol (40-60) mg/dL 04/15/19 04/15/19 04/15/19 Range/Units 04:00 04:29 04:48 WBC (3.8-10.6) k/uL RBC (4.30-5.90) m/uL Hgb (13.0-17.5) gm/dL Hct (39.0-53.0) % MCHC (31.0-37.0) g/dL Plt Count (150-450) k/uL Neutrophils # (1.3-7.7) k/uL Lymphocytes # (1.0-4.8) k/uL PT (9.0-12.0) sec INR (<1.2) APTT (22.0-30.0) sec Sodium (137-145) mmol/L Potassium (3.5-5.1) mmol/L Chloride (98-107) mmol/L BUN (9-20) mg/dL Creatinine (0.66-1.25) mg/dL Glucose (74-99) mg/dL POC Glucose (mg/dL) 59 L 43 L 40 L (75-99) mg/dL Calcium (8.4-10.2) mg/dL Delta Bilirubin (0.0-0.2) mg/dL AST (17-59) U/L Troponin I (0.000-0.034) ng/mL Albumin (3.5-5.0) g/dL HDL Cholesterol (40-60) mg/dL 04/15/19 04/15/19 04/15/19 Range/Units 05:01 05:29 05:29 WBC (3.8-10.6) k/uL RBC 3.53 L (4.30-5.90) m/uL Hgb 10.1 L (13.0-17.5) gm/dL Hct 32.7 L (39.0-53.0) % MCHC 30.8 L (31.0-37.0) g/dL Plt Count 144 L (150-450) k/uL Neutrophils # (1.3-7.7) k/uL Lymphocytes # 0.6 L (1.0-4.8) k/uL PT (9.0-12.0) sec INR (<1.2) APTT (22.0-30.0) sec Sodium 132 L (137-145) mmol/L Potassium (3.5-5.1) mmol/L Chloride 93 L (98-107) mmol/L BUN 66 H (9-20) mg/dL Creatinine 1.93 H (0.66-1.25) mg/dL Glucose 40 L* (74-99) mg/dL POC Glucose (mg/dL) 115 H (75-99) mg/dL Calcium 8.1 L (8.4-10.2) mg/dL Delta Bilirubin (0.0-0.2) mg/dL AST (17-59) U/L Troponin I (0.000-0.034) ng/mL Albumin (3.5-5.0) g/dL HDL Cholesterol 25 L (40-60) mg/dL 04/15/19 04/15/19 04/15/19 Range/Units 05:29 05:49 06:08 WBC (3.8-10.6) k/uL RBC (4.30-5.90) m/uL Hgb (13.0-17.5) gm/dL Hct (39.0-53.0) % MCHC (31.0-37.0) g/dL Plt Count (150-450) k/uL Neutrophils # (1.3-7.7) k/uL Lymphocytes # (1.0-4.8) k/uL PT (9.0-12.0) sec INR (<1.2) APTT (22.0-30.0) sec Sodium 133 L (137-145) mmol/L Potassium (3.5-5.1) mmol/L Chloride 95 L (98-107) mmol/L BUN 66 H (9-20) mg/dL Creatinine 1.92 H (0.66-1.25) mg/dL Glucose 37 L* (74-99) mg/dL POC Glucose (mg/dL) 45 L 40 L (75-99) mg/dL Calcium 8.0 L (8.4-10.2) mg/dL Delta Bilirubin 0.5 H (0.0-0.2) mg/dL AST 68 H (17-59) U/L Troponin I (0.000-0.034) ng/mL Albumin 3.3 L (3.5-5.0) g/dL HDL Cholesterol (40-60) mg/dL 04/15/19 04/15/19 04/15/19 Range/Units 06:30 07:02 07:33 WBC (3.8-10.6) k/uL RBC (4.30-5.90) m/uL Hgb (13.0-17.5) gm/dL Hct (39.0-53.0) % MCHC (31.0-37.0) g/dL Plt Count (150-450) k/uL Neutrophils # (1.3-7.7) k/uL Lymphocytes # (1.0-4.8) k/uL PT (9.0-12.0) sec INR (<1.2) APTT (22.0-30.0) sec Sodium (137-145) mmol/L Potassium (3.5-5.1) mmol/L Chloride (98-107) mmol/L BUN (9-20) mg/dL Creatinine (0.66-1.25) mg/dL Glucose (74-99) mg/dL POC Glucose (mg/dL) 127 H 110 H 66 L (75-99) mg/dL Calcium (8.4-10.2) mg/dL Delta Bilirubin (0.0-0.2) mg/dL AST (17-59) U/L Troponin I (0.000-0.034) ng/mL Albumin (3.5-5.0) g/dL HDL Cholesterol (40-60) mg/dL 04/15/19 04/15/19 04/15/19 Range/Units 08:03 08:26 09:09 WBC (3.8-10.6) k/uL RBC (4.30-5.90) m/uL Hgb (13.0-17.5) gm/dL Hct (39.0-53.0) % MCHC (31.0-37.0) g/dL Plt Count (150-450) k/uL Neutrophils # (1.3-7.7) k/uL Lymphocytes # (1.0-4.8) k/uL PT (9.0-12.0) sec INR (<1.2) APTT (22.0-30.0) sec Sodium (137-145) mmol/L Potassium (3.5-5.1) mmol/L Chloride (98-107) mmol/L BUN (9-20) mg/dL Creatinine (0.66-1.25) mg/dL Glucose (74-99) mg/dL POC Glucose (mg/dL) 61 L 62 L 52 L (75-99) mg/dL Calcium (8.4-10.2) mg/dL Delta Bilirubin (0.0-0.2) mg/dL AST (17-59) U/L Troponin I (0.000-0.034) ng/mL Albumin (3.5-5.0) g/dL HDL Cholesterol (40-60) mg/dL 04/15/19 04/15/19 04/15/19 Range/Units 09:40 10:11 10:42 WBC (3.8-10.6) k/uL RBC (4.30-5.90) m/uL Hgb (13.0-17.5) gm/dL Hct (39.0-53.0) % MCHC (31.0-37.0) g/dL Plt Count (150-450) k/uL Neutrophils # (1.3-7.7) k/uL Lymphocytes # (1.0-4.8) k/uL PT (9.0-12.0) sec INR (<1.2) APTT (22.0-30.0) sec Sodium (137-145) mmol/L Potassium (3.5-5.1) mmol/L Chloride (98-107) mmol/L BUN (9-20) mg/dL Creatinine (0.66-1.25) mg/dL Glucose (74-99) mg/dL POC Glucose (mg/dL) 53 L 60 L 50 L (75-99) mg/dL Calcium (8.4-10.2) mg/dL Delta Bilirubin (0.0-0.2) mg/dL AST (17-59) U/L Troponin I (0.000-0.034) ng/mL Albumin (3.5-5.0) g/dL HDL Cholesterol (40-60) mg/dL 04/15/19 Range/Units 11:07 WBC (3.8-10.6) k/uL RBC (4.30-5.90) m/uL Hgb (13.0-17.5) gm/dL Hct (39.0-53.0) % MCHC (31.0-37.0) g/dL Plt Count (150-450) k/uL Neutrophils # (1.3-7.7) k/uL Lymphocytes # (1.0-4.8) k/uL PT (9.0-12.0) sec INR (<1.2) APTT (22.0-30.0) sec Sodium (137-145) mmol/L Potassium (3.5-5.1) mmol/L Chloride (98-107) mmol/L BUN (9-20) mg/dL Creatinine (0.66-1.25) mg/dL Glucose (74-99) mg/dL POC Glucose (mg/dL) 72 L (75-99) mg/dL Calcium (8.4-10.2) mg/dL Delta Bilirubin (0.0-0.2) mg/dL AST (17-59) U/L Troponin I (0.000-0.034) ng/mL Albumin (3.5-5.0) g/dL HDL Cholesterol (40-60) mg/dL Thrombosis Risk Factor Assmnt - Choose All That Apply Each Factor Represents 1 point: Obesity (BMI >25) Each Risk Factor Represents 2 Points: Age 61-74 years Thrombosis Risk Factor Assessment Total Risk Factor Score: 3 Thrombosis Risk Factor Assessment Level: Moderate Risk Assessment and Plan Assessment: altered mental status, mostly due to hypo-glycemia, improved Diabetes mellitus with hyperglycemia acute on chronic congestive heart failure, unknown ejection Fraction Coagulopathy secondary to warfarin history of aortic valve replacement, on Coumadin History of coronary artery disease status post CABG Hyperlipidemia Hypertension Chronic kidney disease stage III Plan: this is a pleasant 74 years old male who presents with altered mental status secondary to hypoglycemia. Patient is difficult to control his sugar despite several attempts to get injections and infusions of glucose. Hold all his diabetes medication. 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 I spoke the on-call physician Dr. Mesa at [facility] and she currently accepted the patient. Patient himself and requested to be transferred. Patient is stable to be transferred Labs and medication were reviewed.. Continue same treatment. Continue with symptomatic treatment. Resume home medication. Monitor lytes and vitals. DVT and GI prophylaxis. Further recommendations of the clinical course of the patient DVT prophylaxis: has supratherapeutic INR GI Prophylaxis: Pepcid Prognosis is guarded
[2019-04-15] MEDS ORDERED: hydrALAZINE HCL 25 MG TAB PO SCH (21:00)
[2019-04-15] MEDS ORDERED: CARVEDILOL 25 MG PO SCH (21:00)
[2019-04-15] MEDS ORDERED: SOTALOL 80 MG TAB PO SCH (21:00)
[2019-04-15] MEDS ORDERED: ROSUVASTATIN CALCIUM 10 MG PO SCH (21:00)
[2019-04-16] MEDS ORDERED: ISOSORBIDE MONONITRATE ER 30 MG TAB.ER.24H PO SCH (09:00)
[2019-04-16] MEDS ORDERED: NON FORMULARY DRUG (Cholecalciferol (Vitamin D3) [Vitamin D3] 2,000 UNIT) PO SCH (09:00)
[2019-04-16] MEDS ORDERED: amLODIPine 5 MG TAB PO SCH (09:00)
[2019-04-16] MEDS ORDERED: TAMSULOSIN 0.4 MG CAP.ER.24H PO SCH (09:00)
[2019-04-17] MEDS ORDERED: CALCITRIOL 0.25 MCG CAP PO SCH (15:42)
--- NOTE | 2019-04-19 07:18 | CDI ---
Documentation Clarification Form Date: 04/19/19 From: Kimberly Desai Phone: If you have a question about this query, please contact Myra Parisi, [employer] Service Management Teacher at [phone] between 8am and 5pm. Admit Date: 04/14/19 Discharge Date: 04/19/19 Patient Name: Chadwick Segura Visit Number: [id number] ATTENTION: The Clinical Documentation Specialists (CDI) and [facility] Coding Staff appreciate your assistance in clarifying documentation. Please respond to the clarification below the line at the bottom and electronically sign. The CDI & [facility] Coding staff will review the response and follow-up if needed. Please note: Queries are made part of the Legal Health Record. If you have any questions, please contact the author of this message via ITS. Dear Dr. Сергей Douglas Altered Mental Status was documented in the ED note and H&P. Altered mental status mostly due to hypoglycemia is documented in the H&P. History/Risk Factors: Diabetes, hypertension, CHF Clinical Indicators: 2 episodes of loss of consciousness Labs: Glucose 33, 104, 40, 30 X Ray: CXR: small bilateral pleural effusion CT: Brain: Patchy to confluent periventricular white matter hypodensity, likely on the basis of chronic whtie matter ischemic changes Treatment: Dextrose water In your professional opinion, please clarify the etiology of the Altered Mental Status, if known. Delirium (specify cause): Encephalopathy (specify Type and Underlying Medical Illness) Other condition (please specify) Unable to determine metabolic encephalopathy secondary to hypoglycemia MTDD
== END 2019-04-15 15:15 | disposition home or self-care (01) | DRG 638 ==
LOC: EC 15:29 → 3SCARD 18:04
PROVIDERS: ADMIT Internal Medicine; ATTEND Internal Medicine
DX: E11.649 Type 2 diabetes mellitus with hypoglycemia without coma (principal); I13.0 Hypertensive heart and chronic kidney disease with heart failure and stage 1 through stage 4 chronic kidney disease, or unspecified chronic kidney disease; E11.22 Type 2 diabetes mellitus with diabetic chronic kidney disease; I50.9 Heart failure, unspecified; N18.3 Chronic kidney disease, stage 3 (moderate); E11.65 Type 2 diabetes mellitus with hyperglycemia; E78.5 Hyperlipidemia, unspecified; I25.10 Atherosclerotic heart disease of native coronary artery without angina pectoris; I25.5 Ischemic cardiomyopathy; R55 Syncope and collapse; R60.9 Edema, unspecified; R79.89 Other specified abnormal findings of blood chemistry; R79.1 Abnormal coagulation profile; Z79.01 Long term (current) use of anticoagulants; Z79.82 Long term (current) use of aspirin; Z79.84 Long term (current) use of oral hypoglycemic drugs; Z79.899 Other long term (current) drug therapy; Z87.891 Personal history of nicotine dependence; Z95.1 Presence of aortocoronary bypass graft; Z95.2 Presence of prosthetic heart valve
CPT/HCPCS: 36415; 70450; 71046; 80048; 80053; 80061; 80076; 80306; 81003; 82533; 83525; 83605; 83880; 84484; 84681; 85025; 85610; 85730; 93005; 96374; 96375; 96376; 99285

== ENCOUNTER 2020-11-16 20:49 | Emergency (ER) | payer MEDICARE, OTHER ==
[~2020-11-16 20:49] MED LIST: CALCIUM CHLORIDE 100 MG/ML 10 ML SYRINGE ONE; EPINEPHrine 10 ML SYRINGE (0.1 MG/ML) ONE; SODIUM BICARB 8.4% 50 ML SYR (1 MEQ/ML) ONE
[2020-11-16 21:03] LABS: Glucose,Whole Blood 115 mg/dL (75-99)
--- NOTE | 2020-11-16 22:45 | ED ---
General Adult HPI - General Stated complaint: Cardiac Arrest Time Seen by Provider: 11/16/20 21:00 Source: EMS, RN notes reviewed, old records reviewed Mode of arrival: EMS Limitations: no limitations - History of Present Illness Initial comments: Patient is a 75-year-old female with past medical history remarkable for CK D, CAD with a history of CABG, CHF with AICD in place who presents emergency Department for cardiac arrest. Patient was found down at home and bystander CPR was started by family members. EMS arrived, they did perform CPR for approximately 5 minutes and obtained a return of spontaneous circulation once. Patient was shocked a total of 2 times by EMS and one time by his AICD at his house. It took 20 minutes to transport the patient to the emergency department. Over that time he was placed on the [facility] chest compression machine. They did not obtain a shockable rhythm en route to the hospital, and did not obtain return of spontaneous circulation during that time period either. They gave the patient an IV, Thee tube was placed. Patient received a dose of epinephrine on the way to the hospital. Patient presents with active chest compressions by the [facility]ell machine, Thee tube in place with bag valve mask ventilation, unresponsive with active cardiac arrest. - Related Data Home Medications Medication Instructions Recorded Confirmed Acetaminophen [Tylenol 8 Hour] 650 mg PO Q8H PRN 04/14/19 04/14/19 Aspirin EC [Ecotrin Low Dose] 81 mg PO DAILY 04/14/19 04/14/19 Cholecalciferol (Vitamin D3) 2,000 unit PO DAILY 04/14/19 04/14/19 [Vitamin D3] Furosemide [Lasix] 80 mg PO DAILY 04/14/19 04/14/19 Glimepiride [Amaryl] 1 mg PO DAILY 04/14/19 04/14/19 Isosorbide Mononitrate ER [Imdur] 30 mg PO DAILY 04/14/19 04/14/19 Rosuvastatin Calcium [Crestor] 10 mg PO HS 04/14/19 04/14/19 Sodium Bicarbonate Tab 650 mg PO DAILY 04/14/19 04/14/19 Sotalol [Betapace] 80 mg PO BID 04/14/19 04/14/19 Tamsulosin HCl [Flomax] 0.4 mg PO DAILY 04/14/19 04/14/19 Ubidecarenone [Co Q-10] 100 mg PO DAILY 04/14/19 04/14/19 Warfarin [Coumadin] 2.5 mg PO DAILY 04/14/19 04/14/19 amLODIPine [Norvasc] 5 mg PO DAILY 04/14/19 04/14/19 calcitrioL [Calcitriol] 0.25 mcg PO MOWEFR 04/14/19 04/14/19 carvediloL [Carvedilol] 25 mg PO BID 04/14/19 04/14/19 hydrALAZINE HCL 25 mg PO BID 04/14/19 04/14/19 Allergies Allergy/AdvReac Type Severity Reaction Status Date / Time fluvastatin AdvReac Unknown Unknown Verified 11/16/20 22:11 clopidogrel [From Plavix] AdvReac Unknown Verified 11/16/20 22:11 spironolactone AdvReac ELEVATED Verified 11/16/20 22:11 [From Aldactone] POTASSIUM LEVELS Review of Systems ROS Statement: Those systems with pertinent positive or pertinent negative responses have been documented in the HPI. Unable to obtain secondary to patient's critical status. ROS Other: All systems not noted in ROS Statement are negative. Past Medical History Past Medical History: Coronary Artery Disease (CAD), Diabetes Mellitus, Hyperlipidemia, Hypertension Additional Past Medical History / Comment(s): bypass in 2014, childhood polio History of Any Multi-Drug Resistant Organisms: None Reported Past Surgical History: Unable to Obtain, Cardiac Valve Replacement, Coronary Bypass/CABG, Pacemaker Additional Past Surgical History / Comment(s): CKD- stage 3, Past Anesthesia/Blood Transfusion Reactions: No Reported Reaction Type of Cardiac Device: AICD Device Placement Date:: 07/14/17 Past Psychological History: No Psychological Hx Reported Smoking Status: Unknown if ever smoked Past Alcohol Use History: None Reported Past Drug Use History: None Reported General Exam - General Exam Comments Initial Comments: General: Unresponsive HEAD: No signs of head trauma. EYES:. Pupils are fixed and approximately 3 mm bilaterally. ENT: Thee tube in place RESPIRATORY: Patient has breath sounds bilaterally with bag valve mask. Trachea is midline. C/V: Pulseless ABD: Abd is soft, nondistended EXT: No obvious deformity of the extremity spent SKIN: Patient has bruising over his body, as well as on his chest where the mucus machine is administered chest compressions. NEURO: Unresponsive Limitations: no limitations Medical Decision Making - Medical Decision Making Patient arrived inactive cardiac arrest. Patient was immediately connected to a monitor, pads were placed on the patient and connected to the monitor. Compressions were continued with the [facility] machine. Additional IV was placed. Point of care blood sugar was within normal limits. Patient was administered a dose of epinephrine, one amp of bicarb, and 1 amp of calcium immediately upon arrival. ACLS protocol was followed. A total of 4 rounds of 1mg epinephrine, 3 Amp of calcium, and 1 amp of bicarb were administered to the patient. On each pulse Check, patient was in pulseless electrical activity. There is no indication for shockable rhythm at that time. Return of spontaneous activation was not obtained. Cardiac ultrasound revealed no organized cardiac rhythm with agonal myocardial activity and isolated sections of the heart. He never had return of pulse. After 12 minutes of CPR and ACLS in the emergency department, in addition to the 20 minutes since the prior ROSC by EMS en route to the hospital, the patient remained with PEA on the monitor. The decision was made after discussion with persisting medical staff to call time of at 2102. Time of was called by myself. I updated the patient's family and spoke with his regarding the . Answered all questions that they had. I spoke with the medical consultant over the phone, Gi, who stated that the patient will not become medical consultant case. Patient's body will be released to the family. The patient has from cardiopulmonary arrest. - Lab Data Lab Results 11/16/20 Range/Units 20:51 POC Glucose (mg/dL) 115 H (75-99) mg/dL POC Glu Package Sealer ID [place] Gonzalez Disposition Clinical Impression: , Cardiopulmonary arrest, PEA (Pulseless electrical activity), History of coronary artery bypass graft, History of chronic kidney disease, History of CHF (congestive heart failure) Disposition: Condition: Undetermined Referrals: Nohemy Donis DO [Primary Care Provider] - 1-2 days Preliminary Cause of : cardiopulmonary arrest
== END 2020-11-17 01:11 | disposition expired ==
LOC: EC 20:49
DX: I46.9 Cardiac arrest, cause unspecified (principal); E11.22 Type 2 diabetes mellitus with diabetic chronic kidney disease; I25.10 Atherosclerotic heart disease of native coronary artery without angina pectoris; I13.0 Hypertensive heart and chronic kidney disease with heart failure and stage 1 through stage 4 chronic kidney disease, or unspecified chronic kidney disease; I50.9 Heart failure, unspecified; N18.30 Chronic kidney disease, stage 3 unspecified; E78.5 Hyperlipidemia, unspecified; Z79.01 Long term (current) use of anticoagulants; Z79.82 Long term (current) use of aspirin; Z79.84 Long term (current) use of oral hypoglycemic drugs; Z95.0 Presence of cardiac pacemaker; Z95.1 Presence of aortocoronary bypass graft; Z95.2 Presence of prosthetic heart valve; Z88.8 Allergy status to other drugs, medicaments and biological substances; Z79.899 Other long term (current) drug therapy
CPT/HCPCS: 36415; 99285